=== PATIENT | male | born 1960 | race Caucasian/White ===

== ENCOUNTER 2017-07-02 00:59 | Inpatient (IN) | payer BC ==
[2017-07-02] VITALS (9 sets, daily range): BP systolic 118–135
[~2017-07-02] VITALS: Ht 167.6 cm; Wt 65.8 kg
[2017-07-02] MEDS ORDERED: NACL 0.9% 1,000 ML IV ONE ×2 (01:21→03:30)
[2017-07-02] MEDS ORDERED: LEVO500T20 PO (01:27)
[2017-07-02] MEDS ORDERED: TRAM50TA92 PO (01:27)
[2017-07-02] MEDS ORDERED: METR500T PO (01:28)
[2017-07-02] MEDS ORDERED: METOCLOPRAMIDE HCL 10 MG/2 ML VIAL IVP ONE (01:30)
[2017-07-02] MEDS ORDERED: KETOROLAC TROMETHAMINE 30 MG VIAL IVP ONE (01:30)
[2017-07-02 01:42] LABS: LYMPHOCYTES # (AUTO) 1.2 K/uL (1.0-5.5); MEAN CORPUSCULAR HEMOGLOBIN 33 pg (27-31); MEAN CORPUSCULAR HGB CONC 34 % (32-36); MEAN CORPUSCULAR VOLUME 96 fL (79.0-98.0); MONOCYTES # (AUTO) 1.1 K/uL (0.0-1.0)
[2017-07-02 01:49] LABS: BASOPHILS # (AUTO) 0.3 K/uL (0.0-0.2); BASOPHILS % (AUTO) 1.6 % (0.0-2.0); EOSINOPHILS % (AUTO) 0.1 % (0.0-4.0); HEMATOCRIT 36.9 % (36-54); HEMOGLOBIN 12.6 g/dL (14.0-18.0); LYMPHOCYTES % (AUTO) 7.3 % (20.5-51.5); MONOCYTES % (AUTO) 6.6 % (1.7-9.3); NEUTROPHILS # (AUTO) 13.8 K/uL (1.8-7.7); NEUTROPHILS % (AUTO) 84.4 % (40.0-70.0); PLATELET COUNT (AUTO) 339 K/uL (130-430); RED BLOOD CELL COUNT(AUTO) 3.83 MIL/uL (4.2-6.2); RED CELL DISTRIBUTION WIDTH 11.8 % (9.0-15.0)
[2017-07-02 01:50] LABS: CALCIUM 8.8 mg/dL (8.4-11.0); CREATININE 1.17 mg/dL (0.55-1.30)
[2017-07-02] MEDS ORDERED: IOHEXOL 100 ML IV ONE (01:53)
[2017-07-02 01:54] LABS: WHITE BLOOD COUNT (AUTO) 16.4 K/uL (4.8-10.8)
[2017-07-02] MEDS ORDERED: ONDANSETRON HCL 4 MG/2 ML VIAL IVP ONE (02:00)
[2017-07-02 02:01] LABS: ALBUMIN 2.5 g/dL (3.4-4.8); TOTAL BILIRUBIN 0.9 mg/dL (0.0-1.0)
[2017-07-02 02:05] LABS: POTASSIUM 2.9 mmol/L (3.5-5.1)
[2017-07-02 02:12] LABS: BILIRUBIN,URINE NEGATIVE (NEGATIVE); BLOOD, URINE 2+ (NEGATIVE); CLARITY/URINE SL CLOUDY (CLEAR); COLOR,URINE YELLOW (YELLOW); GLUCOSE,URINE NEGATIVE (NEGATIVE); KETONES,URINE 2+ (NEGATIVE); LEUKOCYTE ESTERASE ,URINE TRACE (NEGATIVE); NITRITE, URINE NEGATIVE (NEGATIVE); PH,URINE 5.5 (5.0-8.0); PROTEIN URINE 2+ (NEGATIVE); UROBILINOGEN,URINE 0.2 (0.2-1.0)
[2017-07-02 02:14] LABS: BACTERIA,URINE MANY /HPF (None Seen); FINE GRANULAR CASTS,URINE 0-10 /LPF (None Seen); MUCUS,URINE 1+ /LPF (None Seen)
[2017-07-02] MEDS ORDERED: LACTULOSE 20 GM/30 ML UDC PO ONE (02:15)
[2017-07-02] MEDS ORDERED: MORPHINE 4 MG/ML INJ. SYRINGE IVP ONE (02:15)
[2017-07-02] MEDS ORDERED: POTASSIUM CHLORIDE 20 MEQ/PKT PACKET PO ONE (02:15)
[2017-07-02] MEDS ORDERED: metroNIDAZOLE 500 mg/NS 100 ML IV ONE (03:30)
[2017-07-02] MEDS ORDERED: ACETAMINOPHEN 325 MG TABLET PO PRN (04:15)
[2017-07-02] MEDS ORDERED: HYDROmorphone 1 MG INJ. 1 MG/ML AMPUL IVP PRN (04:15)
[2017-07-02] MEDS ORDERED: HYDROcodone/ACETAMIN 5-325 MG TAB (NORCO/ VICODIN) PO PRN (04:15)
[2017-07-02] MEDS ORDERED: MILK OF MAGNESIA 30 ML UDC PO ONE ×2 (11:45→12:30)
[2017-07-02] MEDS: metroNIDAZOLE 500 mg/NS 100 ML IV SCH ×2 (13:51→21:58)
[2017-07-02] MEDS ORDERED: NEOMYCIN SULFATE 500 MG TABLET PO SCH (15:00)
[2017-07-02] MEDS: NEOMYCIN SULFATE 500 MG TABLET PO SCH ×2 (16:59→21:58)
[2017-07-02] MEDS ORDERED: MILK OF MAGNESIA 30 ML UDC PO PRN (20:30)
[2017-07-02] MEDS ORDERED: PANTOPRAZOLE SODIUM 40 MG TAB PO ONE (21:00)
[2017-07-02] MEDS: TEMAZEPAM 15 MG CAPSULE PO SCH (21:58)
[2017-07-03] VITALS (9 sets, daily range): BP systolic 120–139
[2017-07-03] MEDS ORDERED: NA PHOS,M-B/NA PHOS,DI-BA 118 ML (FLEET ENEMA) RC ONE (06:00)
[2017-07-03] MEDS: metroNIDAZOLE 500 mg/NS 100 ML IV SCH ×3 (06:38→19:15)
[2017-07-03 08:23] LABS: BASOPHILS % (AUTO) 0.1 % (0.0-2.0); EOSINOPHILS % (AUTO) 0.1 % (0.0-4.0); HEMATOCRIT 36.9 % (36-54); HEMOGLOBIN 12.6 g/dL (14.0-18.0); LYMPHOCYTES # (AUTO) 1.4 K/uL (1.0-5.5); LYMPHOCYTES % (AUTO) 14.3 % (20.5-51.5); MEAN CORPUSCULAR HEMOGLOBIN 33 pg (27-31); MEAN CORPUSCULAR HGB CONC 34 % (32-36); MONOCYTES # (AUTO) 0.6 K/uL (0.0-1.0); MONOCYTES % (AUTO) 5.8 % (1.7-9.3); NEUTROPHILS # (AUTO) 7.9 K/uL (1.8-7.7); NEUTROPHILS % (AUTO) 79.7 % (40.0-70.0); PLATELET COUNT (AUTO) 386 K/uL (130-430); RED BLOOD CELL COUNT(AUTO) 3.78 MIL/uL (4.2-6.2); RED CELL DISTRIBUTION WIDTH 12.1 % (9.0-15.0)
[2017-07-03 08:28] LABS: MEAN CORPUSCULAR VOLUME 98 fL (79.0-98.0); WHITE BLOOD COUNT (AUTO) 9.9 K/uL (4.8-10.8)
[2017-07-03 08:32] LABS: CALCIUM 8.7 mg/dL (8.4-11.0); POTASSIUM 3.1 mmol/L (3.5-5.1)
[2017-07-03 08:34] LABS: INR 1.3 (0.80-1.20); PROTHROMBIN TIME 13.7 SECS (9.5-12.5)
[2017-07-03 08:36] LABS: ALBUMIN 2.5 g/dL (3.4-4.8); TOTAL BILIRUBIN 0.4 mg/dL (0.0-1.0)
[2017-07-03] MEDS: PANTOPRAZOLE SODIUM 40 MG TAB PO SCH (09:00)
[2017-07-03] MEDS ORDERED: POTASSIUM CHLORIDE 40 MEQ, LIDOCAINE JECT 2% PF 100 MG 50 MG in NS 250 ML IV ONE (13:30)
[2017-07-03] MEDS ORDERED: LORazepam 2 MG/ML VIAL IVP ONE (14:15)
[2017-07-03] MEDS: NEOMYCIN SULFATE 500 MG TABLET PO SCH ×3 (15:00→22:00)
[2017-07-03] MEDS ORDERED: LR 1,000 ML IV.SOLN IV ONE (16:15)
[2017-07-03] MEDS ORDERED: KETOROLAC TROMETHAMINE 30 MG VIAL IVP ONE (16:15)
[2017-07-03] MEDS ORDERED: DEXAMETHASONE SOD PHOSPHATE 4 MG/ML VIAL IVP ONE (16:15)
[2017-07-03] MEDS ORDERED: NS 1000 ML BAG IV ONE (16:15)
[2017-07-03] MEDS ORDERED: NS IRRIG SOLN 1000 ML IR ONE (16:15)
[2017-07-03] MEDS ORDERED: ONDANSETRON HCL 4 MG/2 ML VIAL IVP ONE (16:15)
[2017-07-03] MEDS ORDERED: BUPIVACAINE /EPINEPHRINE/PF 0.25% 30 ML VIAL INJ ONE (16:15)
[2017-07-03] MEDS ORDERED: metroNIDAZOLE 500 mg/NS 100 mL IVPB IV ONE (16:15)
[2017-07-03] MEDS ORDERED: ROCURONIUM BROMIDE 10 MG/ML (ZEMURON) IV ONE (16:15)
[2017-07-03] MEDS ORDERED: fentaNYL CITRATE 250 MCG/5 ML AMP IV ONE (16:15)
[2017-07-03] MEDS ORDERED: MIDAZOLAM HCL 5 MG/5 ML VIAL IVP ONE (16:15)
[2017-07-03] MEDS ORDERED: PROPOFOL 200MG/ 20ML VIAL (DIPRIVAN) IV ONE (16:15)
[2017-07-03] MEDS ORDERED: SEVOFLURANE 15 MIN GAS INH ONE (16:15)
[2017-07-03] MEDS ORDERED: LR 1,000 ML IV SCH (17:16)
[2017-07-03] MEDS ORDERED: HYDROmorphone 2 MG/ML VIAL IVP PRN ×2 (17:30)
[2017-07-03] MEDS ORDERED: MEPERIDINE HCL/PF 25 MG/ML DISP.SYRIN IVP PRN (17:30)
[2017-07-03] MEDS ORDERED: HYDROmorphone 1 MG INJ. 1 MG/ML AMPUL IVP PRN (17:30)
[2017-07-03] MEDS ORDERED: HYDROmorphone 2 MG/ML VIAL ONE (19:44)
[2017-07-03] MEDS ORDERED: HYDROmorphone 1 MG INJ. 1 MG/ML AMPUL ONE (20:07)
[2017-07-03] MEDS: TEMAZEPAM 15 MG CAPSULE PO SCH (21:00)
[2017-07-03] MEDS: ONDANSETRON HCL 4 MG/2 ML VIAL IVP PRN (21:31)
[2017-07-03] MEDS: HYDROmorphone 1 MG INJ. 1 MG/ML AMPUL IVP PRN (21:31)
[2017-07-04] VITALS (18 sets, daily range): BP systolic 117–142
[2017-07-04] MEDS: HYDROmorphone 1 MG INJ. 1 MG/ML AMPUL IVP PRN ×6 (01:15→17:51)
[2017-07-04] MEDS: metroNIDAZOLE 500 mg/NS 100 ML IV SCH (03:29)
[2017-07-04 06:22] LABS: HEMOGLOBIN 11.2 g/dL (14.0-18.0); MEAN CORPUSCULAR HEMOGLOBIN 33 pg (27-31); MEAN CORPUSCULAR HGB CONC 34 % (32-36); MEAN CORPUSCULAR VOLUME 98 fL (79.0-98.0); PLATELET COUNT (AUTO) 394 K/uL (130-430); RED BLOOD CELL COUNT(AUTO) 3.37 MIL/uL (4.2-6.2); RED CELL DISTRIBUTION WIDTH 12.1 % (9.0-15.0)
[2017-07-04 06:31] LABS: ALBUMIN 2.3 g/dL (3.4-4.8); CALCIUM 8.7 mg/dL (8.4-11.0); POTASSIUM 3.8 mmol/L (3.5-5.1); TOTAL BILIRUBIN 0.4 mg/dL (0.0-1.0)
[2017-07-04 07:11] LABS: WHITE BLOOD COUNT (AUTO) 15.3 K/uL (4.8-10.8)
[2017-07-04 07:46] LABS: ATYPICAL LYMPHOCYTES % 0 % (0-0); BAND % (MANUAL) 2 % (0-6); BASOPHILS % (MANUAL) 0 % (0-2); EOSINOPHILS % (MANUAL) 0 % (0-7); LYMPHOCYTES % (MANUAL) 7 % (20-46); MONOCYTES % (MANUAL) 3 % (0-11)
[2017-07-04] MEDS: PANTOPRAZOLE SODIUM 40 MG TAB PO SCH ×2 (09:00→09:08)
[2017-07-04] MEDS: PANTOPRAZOLE SODIUM 40 MG/VIAL (PROTONIX) IVP SCH (11:31)
[2017-07-04] MEDS: D5LR 1,000 ML IV SCH ×3 (11:31→19:43)
[2017-07-04] MEDS: NEOMYCIN SULFATE 500 MG TABLET PO SCH ×2 (14:46→14:47)
[2017-07-04] MEDS ORDERED: HYDROmorphone 1 MG INJ. 1 MG/ML AMPUL IVP ONE (19:00)
[2017-07-04] MEDS: TEMAZEPAM 15 MG CAPSULE PO SCH (19:43)
[2017-07-04] MEDS: ONDANSETRON HCL 4 MG/2 ML VIAL IVP PRN (19:43)
[2017-07-04] MEDS: KETOROLAC TROMETHAMINE 30 MG VIAL IVP PRN (20:18)
[2017-07-05] MEDS: D5LR 1,000 ML IV SCH ×4 (01:40→18:46)
[2017-07-05] MEDS: HYDROmorphone 1 MG INJ. 1 MG/ML AMPUL IVP PRN ×4 (03:33→18:30)
[2017-07-05 03:54] VITALS: BP_SYST 127
[2017-07-05 07:09] LABS: BASOPHILS % (AUTO) 0.1 % (0.0-2.0); EOSINOPHILS % (AUTO) 0.4 % (0.0-4.0); HEMATOCRIT 30.4 % (36-54); HEMOGLOBIN 10.2 g/dL (14.0-18.0); LYMPHOCYTES # (AUTO) 2.1 K/uL (1.0-5.5); LYMPHOCYTES % (AUTO) 22.8 % (20.5-51.5); MEAN CORPUSCULAR HEMOGLOBIN 33 pg (27-31); MEAN CORPUSCULAR HGB CONC 34 % (32-36); MEAN CORPUSCULAR VOLUME 98 fL (79.0-98.0); MONOCYTES # (AUTO) 0.5 K/uL (0.0-1.0); MONOCYTES % (AUTO) 5.7 % (1.7-9.3); NEUTROPHILS # (AUTO) 6.6 K/uL (1.8-7.7); PLATELET COUNT (AUTO) 416 K/uL (130-430); RED BLOOD CELL COUNT(AUTO) 3.11 MIL/uL (4.2-6.2); RED CELL DISTRIBUTION WIDTH 12.2 % (9.0-15.0)
[2017-07-05 07:16] LABS: WHITE BLOOD COUNT (AUTO) 9.2 K/uL (4.8-10.8)
[2017-07-05 07:18] LABS: CALCIUM 8.3 mg/dL (8.4-11.0); CREATININE 0.92 mg/dL (0.55-1.30)
[2017-07-05 07:59] LABS: POTASSIUM 2.9 mmol/L (3.5-5.1)
[2017-07-05] MEDS ORDERED: POTASSIUM CHLORIDE 40 MEQ, LIDOCAINE JECT 2% PF 100 MG 50 MG in NS 250 ML IV ONE ×2 (08:15→17:45)
[2017-07-05 08:43] VITALS: BP_SYST 120
[2017-07-05] MEDS: PANTOPRAZOLE SODIUM 40 MG/VIAL (PROTONIX) IVP SCH (08:56)
[2017-07-05 12:25] VITALS: BP_SYST 116
[2017-07-05 13:50] VITALS: BP_SYST 116
[2017-07-05 16:23] VITALS: BP_SYST 142
[2017-07-05 20:55] VITALS: BP_SYST 124
[2017-07-05] MEDS: TEMAZEPAM 15 MG CAPSULE PO SCH (21:01)
[2017-07-05] MEDS: KETOROLAC TROMETHAMINE 30 MG VIAL IVP PRN (21:01)
[2017-07-05] MEDS: ONDANSETRON HCL 4 MG/2 ML VIAL IVP PRN (21:10)
[2017-07-06] VITALS (7 sets, daily range): BP systolic 127–150
[2017-07-06] MEDS: D5LR 1,000 ML IV SCH ×4 (01:20→22:03)
[2017-07-06] MEDS: KETOROLAC TROMETHAMINE 30 MG VIAL IVP PRN ×2 (05:40→14:43)
[2017-07-06 06:42] LABS: BASOPHILS % (AUTO) 0.2 % (0.0-2.0); EOSINOPHILS # (AUTO) 0.1 K/uL (0.0-0.4); EOSINOPHILS % (AUTO) 1.2 % (0.0-4.0); HEMOGLOBIN 11.2 g/dL (14.0-18.0); LYMPHOCYTES # (AUTO) 1.7 K/uL (1.0-5.5); LYMPHOCYTES % (AUTO) 22.6 % (20.5-51.5); MEAN CORPUSCULAR HEMOGLOBIN 33 pg (27-31); MEAN CORPUSCULAR HGB CONC 34 % (32-36); MEAN CORPUSCULAR VOLUME 97 fL (79.0-98.0); MONOCYTES # (AUTO) 0.6 K/uL (0.0-1.0); MONOCYTES % (AUTO) 7.4 % (1.7-9.3); NEUTROPHILS # (AUTO) 5.3 K/uL (1.8-7.7); NEUTROPHILS % (AUTO) 68.6 % (40.0-70.0); PLATELET COUNT (AUTO) 460 K/uL (130-430); WHITE BLOOD COUNT (AUTO) 7.7 K/uL (4.8-10.8)
[2017-07-06 06:47] LABS: CALCIUM 8.8 mg/dL (8.4-11.0); CREATININE 0.98 mg/dL (0.55-1.30); POTASSIUM 3.3 mmol/L (3.5-5.1)
[2017-07-06 07:13] LABS: TOTAL IRON BIND. CAPACITY 144 ug/dL (250-450)
[2017-07-06] MEDS: PANTOPRAZOLE SODIUM 40 MG/VIAL (PROTONIX) IVP SCH (08:48)
[2017-07-06] MEDS: HYDROmorphone 1 MG INJ. 1 MG/ML AMPUL IVP PRN ×2 (10:20→18:51)
[2017-07-06] MEDS ORDERED: POTASSIUM CHLORIDE 20 MEQ TAB.PRT.SR PO ONE (13:30)
[2017-07-06] MEDS: TEMAZEPAM 15 MG CAPSULE PO SCH (21:59)
[2017-07-07 04:19] VITALS: BP_SYST 144
[2017-07-07] MEDS: KETOROLAC TROMETHAMINE 30 MG VIAL IVP PRN ×2 (05:57→16:37)
[2017-07-07 06:47] LABS: BASOPHILS % (AUTO) 0.4 % (0.0-2.0); CALCIUM 8.9 mg/dL (8.4-11.0); CREATININE 1.03 mg/dL (0.55-1.30); EOSINOPHILS # (AUTO) 0.2 K/uL (0.0-0.4); EOSINOPHILS % (AUTO) 2.3 % (0.0-4.0); HEMATOCRIT 33.2 % (36-54); HEMOGLOBIN 11.5 g/dL (14.0-18.0); LYMPHOCYTES % (AUTO) 26.3 % (20.5-51.5); MEAN CORPUSCULAR HEMOGLOBIN 34 pg (27-31); MEAN CORPUSCULAR HGB CONC 35 % (32-36); MEAN CORPUSCULAR VOLUME 97 fL (79.0-98.0); MONOCYTES # (AUTO) 0.5 K/uL (0.0-1.0); MONOCYTES % (AUTO) 6.8 % (1.7-9.3); NEUTROPHILS # (AUTO) 4.8 K/uL (1.8-7.7); NEUTROPHILS % (AUTO) 64.2 % (40.0-70.0); PLATELET COUNT (AUTO) 513 K/uL (130-430); POTASSIUM 3.2 mmol/L (3.5-5.1); RED BLOOD CELL COUNT(AUTO) 3.41 MIL/uL (4.2-6.2); RED CELL DISTRIBUTION WIDTH 11.9 % (9.0-15.0); WHITE BLOOD COUNT (AUTO) 7.5 K/uL (4.8-10.8)
[2017-07-07] MEDS: PANTOPRAZOLE SODIUM 40 MG/VIAL (PROTONIX) IVP SCH (10:07)
[2017-07-07] MEDS: HYDROmorphone 1 MG INJ. 1 MG/ML AMPUL IVP PRN (10:09)
[2017-07-07 12:03] VITALS: BP_SYST 128
[2017-07-07] MEDS ORDERED: POTASSIUM CHLORIDE 20 MEQ TAB.PRT.SR PO ONE (14:00)
[2017-07-07] MEDS: ONDANSETRON HCL 4 MG/2 ML VIAL IVP PRN (16:41)
[2017-07-07 16:57] VITALS: BP_SYST 125
[2017-07-07 20:00] VITALS: BP_SYST 144
[2017-07-07] MEDS: TEMAZEPAM 15 MG CAPSULE PO SCH (21:51)
[2017-07-07] MEDS: POTASSIUM CHLORIDE 20 MEQ TAB.PRT.SR PO SCH (21:51)
[2017-07-07] MEDS: D5LR 1,000 ML IV SCH (21:55)
[2017-07-08] VITALS (7 sets, daily range): BP systolic 114–143
[2017-07-08] MEDS: KETOROLAC TROMETHAMINE 30 MG VIAL IVP PRN (07:35)
[2017-07-08] MEDS: POTASSIUM CHLORIDE 20 MEQ TAB.PRT.SR PO SCH ×2 (08:35→20:57)
[2017-07-08] MEDS: PANTOPRAZOLE SODIUM 40 MG/VIAL (PROTONIX) IVP SCH (08:35)
[2017-07-08] MEDS: HYDROcodone/ACETAMIN 5-325 MG TAB (NORCO/ VICODIN) PO PRN ×4 (08:36→20:58)
[2017-07-09 04:01] VITALS: BP_SYST 137
[2017-07-09 07:55] VITALS: BP_SYST 133
[2017-07-09] MEDS: PANTOPRAZOLE SODIUM 40 MG/VIAL (PROTONIX) IVP SCH (08:44)
[2017-07-09] MEDS: POTASSIUM CHLORIDE 20 MEQ TAB.PRT.SR PO SCH (08:45)
[2017-07-09] MEDS: HYDROcodone/ACETAMIN 5-325 MG TAB (NORCO/ VICODIN) PO PRN ×3 (08:45→17:39)
[2017-07-09 11:42] VITALS: BP_SYST 136
[2017-07-09 12:40] VITALS: BP_SYST 121
[2017-07-09] MEDS: KETOROLAC TROMETHAMINE 30 MG VIAL IVP PRN (14:39)
[2017-07-09 16:24] VITALS: BP_SYST 136
== END 2017-07-09 18:10 | disposition home or self-care (01) | DRG 854 ==
LOC: SED 00:59 → SMU 04:09 → SIC 07-03 20:34 → STU 07-04 15:31 → SMU 07-05 19:14
PROVIDERS: ADMIT Internal Medicine; ATTEND Internal Medicine
PROC: 0DBN4ZZ Excision of Sigmoid Colon, Percutaneous Endoscopic Approach (ICD-10-PCS; principal; 2017-07-03 16:45)
DX: A41.9 Sepsis, unspecified organism (principal); E44.0 Moderate protein-calorie malnutrition; K57.20 Diverticulitis of large intestine with perforation and abscess without bleeding; E87.6 Hypokalemia; Z68.23 Body mass index [BMI] 23.0-23.9, adult; J44.9 Chronic obstructive pulmonary disease, unspecified; D64.9 Anemia, unspecified
CPT/HCPCS: 36415; 71010; 80048; 80053; 81000-TC; 83540-TC; 83550-TC; 83605; 83690-TC; 83735-TC; 85007; 85025; 85027; 85610-TC; 86886; 86900; 86901; 87081; 87086; 88307; 93005; 94010; 96361; 96365; 96375; 99285; C9113; J1100; J1170; J1885; J1956; J2060; J2250; J2270; J2405; J2704; J2765; J3010; J3480; J3490; J7030; J7050; J7120; Q9967

== ENCOUNTER 2017-07-10 14:02 | Emergency (ER) | payer BC ==
[~2017-07-10] VITALS: Ht 170.2 cm; Wt 65.8 kg
[2017-07-10 14:22] VITALS: BP_SYST 134
[2017-07-10] MEDS ORDERED: HYDROcodone/ACETAMIN 7.5-325 MG TAB PO ONE (15:30)
[2017-07-10] MEDS ORDERED: DEXAMETHASONE SOD PHOSPHATE 10 MG/ML VIAL IM ONE (15:30)
[2017-07-10 16:01] VITALS: BP_SYST 132
[2017-07-10 16:27] LABS: BILIRUBIN,URINE NEGATIVE (NEGATIVE); BLOOD, URINE NEGATIVE (NEGATIVE); CLARITY/URINE CLEAR (CLEAR); COLOR,URINE YELLOW (YELLOW); GLUCOSE,URINE NEGATIVE (NEGATIVE); KETONES,URINE NEGATIVE (NEGATIVE); LEUKOCYTE ESTERASE ,URINE NEGATIVE (NEGATIVE); NITRITE, URINE NEGATIVE (NEGATIVE); PROTEIN URINE NEGATIVE (NEGATIVE); UROBILINOGEN,URINE 0.2 (0.2-1.0)
== END 2017-07-10 16:01 | disposition home or self-care (01) ==
LOC: SED 14:02
DX: R07.89 Other chest pain (principal); M54.10 Radiculopathy, site unspecified; R03.0 Elevated blood-pressure reading, without diagnosis of hypertension
CPT/HCPCS: 71010; 81003; 93005; 96372; 99285; J1100

== ENCOUNTER 2017-07-14 14:40 | Emergency (ER) | payer BC ==
[~2017-07-14] VITALS: Ht 165.1 cm; Wt 62.1 kg
[2017-07-14 14:51] VITALS: BP_SYST 115
[2017-07-14 16:19] VITALS: BP_SYST 115
== END 2017-07-14 16:19 | disposition home or self-care (01) ==
LOC: SED 14:40
DX: Z48.01 Encounter for change or removal of surgical wound dressing (principal); Z98.890 Other specified postprocedural states
CPT/HCPCS: 99281

== ENCOUNTER 2017-07-20 10:57 | Emergency (ER) | payer BC ==
[~2017-07-20] VITALS: Ht 165.1 cm; Wt 62.6 kg
[2017-07-20 11:01] VITALS: BP_SYST 156
--- NOTE | 2017-07-20 11:09 | NUR ---
Pt to bed 1
--- NOTE | 2017-07-20 11:10 | NUR ---
ER at bedside examining patient.
--- NOTE | 2017-07-20 11:14 | NUR ---
Pt presents to ED with surgical incision to abdomen, s/p resection on Jul 03, by Dr Brennan. Pt reports new drainage, after showering. Some serous drainage noted. Pt 01/16 and tolerable. NAD, Pt is A&O x4
[2017-07-20 12:15] LABS: BASOPHILS % (AUTO) 0.6 % (0.0-2.0); EOSINOPHILS # (AUTO) 0.1 K/uL (0.0-0.4); HEMATOCRIT 41.2 % (36-54); HEMOGLOBIN 13.8 g/dL (14.0-18.0); LYMPHOCYTES # (AUTO) 1.5 K/uL (1.0-5.5); LYMPHOCYTES % (AUTO) 21.2 % (20.5-51.5); MEAN CORPUSCULAR HEMOGLOBIN 32 pg (27-31); MEAN CORPUSCULAR HGB CONC 33 % (32-36); MEAN CORPUSCULAR VOLUME 96 fL (79.0-98.0); MONOCYTES # (AUTO) 0.4 K/uL (0.0-1.0); MONOCYTES % (AUTO) 5.2 % (1.7-9.3); NEUTROPHILS # (AUTO) 5.3 K/uL (1.8-7.7); PLATELET COUNT (AUTO) 420 K/uL (130-430); RED CELL DISTRIBUTION WIDTH 12.3 % (9.0-15.0); WHITE BLOOD COUNT (AUTO) 7.3 K/uL (4.8-10.8)
[2017-07-20 12:38] LABS: CALCIUM 9.2 mg/dL (8.4-11.0); CREATININE 1.09 mg/dL (0.55-1.30); POTASSIUM 3.5 mmol/L (3.5-5.1)
[2017-07-20 12:45] VITALS: BP_SYST 140
[2017-07-20 12:45] LABS: ALBUMIN 3.7 g/dL (3.4-4.8); TOTAL BILIRUBIN 0.5 mg/dL (0.0-1.0)
--- NOTE | 2017-07-20 12:45 | NUR ---
Patient given written and verbal discharge instructions and verbalizes understanding. ER MD discussed with patient the results and treatment provided. Patient in stable condition. ID arm band removed. No Rx given. Patient educated on pain management and to follow up with PMD. Pain Scale 0/10. Opportunity for questions provided and answered.
== END 2017-07-20 12:45 | disposition home or self-care (01) ==
LOC: SED 10:57
DX: Z48.01 Encounter for change or removal of surgical wound dressing (principal); Z91.011 Allergy to milk products
CPT/HCPCS: 36415; 80053; 83690-TC; 85025; 99284

== ENCOUNTER 2017-10-05 13:35 | Emergency (ER) | payer BC ==
[~2017-10-05] VITALS: Ht 165.1 cm; Wt 65.8 kg
[2017-10-05 14:23] VITALS: BP_SYST 138
[2017-10-05] MEDS ORDERED: CLINDAMYCIN 600 MG in D5W 50 ML IV ONE (19:15)
[2017-10-05] MEDS ORDERED: NACL 0.9% 1,000 ML IV ONE (19:15)
[2017-10-05] MEDS ORDERED: CLINDAMYCIN 600 mg/50mL D5W 50 ML IV ONE (19:24)
[2017-10-05] MEDS ORDERED: KETOROLAC TROMETHAMINE 30 MG VIAL IVP ONE (19:45)
[2017-10-05] MEDS ORDERED: LIDOCAINE 1%, 20 ML MDV 20 ML ONE (21:22)
[2017-10-05 22:47] VITALS: BP_SYST 124
== END 2017-10-05 22:47 | disposition home or self-care (01) ==
LOC: SED 13:35
DX: L02.411 Cutaneous abscess of right axilla (principal); Z91.011 Allergy to milk products
CPT/HCPCS: 10060; 76882; 96365; 96375; 99284; J1885; J2001; J3490; J7030

== ENCOUNTER 2017-10-09 17:34 | Inpatient (IN) | payer BC ==
[~2017-10-09] VITALS: Ht 165.1 cm; Wt 65.8 kg
[2017-10-09 18:14] VITALS: BP_SYST 123
--- NOTE | 2017-10-09 21:03 | NUR ---
Patient to ER bed 7 to gown for evaluation. Side rails up. Report given to JODY BURKS.
--- NOTE | 2017-10-09 21:15 | NUR ---
57year old male accompanied by family; pt was seen today and instructed by [facility] to come to ER for reassess and follow up I/D of abcess to R arm pit; pt reports 8/10 pain; pt is currently taking Ibuprofen at home for pain managment which has been ineffective; currently on course antibiotics Clindamycin; pt states redness and inflammation extends throughout upper Right arm; denies fever/chills/sweat; awaiting for MD to assess/eval
--- NOTE | 2017-10-09 21:30 | NUR ---
Dr. Beltran at bedside for assess/eval
[2017-10-09] MEDS ORDERED: IBUP-1969 PO (21:44)
[2017-10-09] MEDS ORDERED: CLIN-77 PO (21:44)
[2017-10-09] MEDS ORDERED: AMPICILLIN SODIUM/SULBACTAM NA 3 GM in NS 100 ML IV ONE (21:45)
[2017-10-09] MEDS ORDERED: AMPICILLIN SODIUM/SULBACTAM NA 3 GM VIAL ONE (21:51)
[2017-10-09] MEDS ORDERED: MORPHINE 4 MG/ML INJ. SYRINGE IVP ONE (22:15)
[2017-10-09] MEDS ORDERED: MORPHINE SULFATE 10 MG/ML VIAL ONE (22:18)
--- NOTE | 2017-10-09 22:20 | NUR ---
20g LH PIV placed; pain med given for 8/10 pain to R arm region; started Unasyn IV ABx; pt tony; will continue to monitor; urine sample collected and will send out to lab
--- NOTE | 2017-10-09 22:30 | NUR ---
wound culture obtained and sent to lab
--- NOTE | 2017-10-09 22:37 | NUR ---
labs drawn at bedside; pt tony
[2017-10-09] MEDS ORDERED: ACETAMINOPHEN 325 MG TABLET PO PRN (23:00)
[2017-10-09] MEDS ORDERED: ONDANSETRON HCL 4 MG/2 ML VIAL IVP PRN ×2 (23:00→23:15)
[2017-10-09] MEDS ORDERED: MORPHINE 2 MG/ML INJ. SYRINGE IVP PRN (23:00)
[2017-10-09 23:08] LABS: BASOPHILS # (AUTO) 0.1 K/uL (0.0-0.2); BASOPHILS % (AUTO) 1.5 % (0.0-2.0); EOSINOPHILS # (AUTO) 0.2 K/uL (0.0-0.4); HEMATOCRIT 35.7 % (36-54); HEMOGLOBIN 11.9 g/dL (14.0-18.0); LYMPHOCYTES # (AUTO) 2.7 K/uL (1.0-5.5); LYMPHOCYTES % (AUTO) 28.6 % (20.5-51.5); MEAN CORPUSCULAR HEMOGLOBIN 31 pg (27-31); MEAN CORPUSCULAR HGB CONC 33 % (32-36); MEAN CORPUSCULAR VOLUME 92 fL (79.0-98.0); MONOCYTES # (AUTO) 0.5 K/uL (0.0-1.0); MONOCYTES % (AUTO) 5.6 % (1.7-9.3); NEUTROPHILS # (AUTO) 5.8 K/uL (1.8-7.7); NEUTROPHILS % (AUTO) 62.3 % (40.0-70.0); PLATELET COUNT (AUTO) 366 K/uL (130-430); RED BLOOD CELL COUNT(AUTO) 3.88 MIL/uL (4.2-6.2); RED CELL DISTRIBUTION WIDTH 12.8 % (9.0-15.0); WHITE BLOOD COUNT (AUTO) 9.3 K/uL (4.8-10.8)
[2017-10-09 23:09] LABS: BILIRUBIN,URINE NEGATIVE (NEGATIVE); BLOOD, URINE NEGATIVE (NEGATIVE); CLARITY/URINE CLEAR (CLEAR); COLOR,URINE YELLOW (YELLOW); GLUCOSE,URINE NEGATIVE (NEGATIVE); KETONES,URINE NEGATIVE (NEGATIVE); LEUKOCYTE ESTERASE ,URINE NEGATIVE (NEGATIVE); NITRITE, URINE NEGATIVE (NEGATIVE); PH,URINE 5.5 (5.0-8.0); PROTEIN URINE NEGATIVE (NEGATIVE); UROBILINOGEN,URINE 0.2 (0.2-1.0)
[2017-10-09 23:11] LABS: ALBUMIN 3.1 g/dL (3.4-4.8); CALCIUM 8.8 mg/dL (8.4-11.0); CREATININE 1.14 mg/dL (0.55-1.30); POTASSIUM 4.1 mmol/L (3.5-5.1); TOTAL BILIRUBIN 0.2 mg/dL (0.0-1.0)
--- NOTE | 2017-10-09 23:17 | NUR ---
endorsed care to JODY Giordano; pt resting comfortably bed; family at bedside; reports pain improved 5/10; VSS
--- NOTE | 2017-10-10 00:17 | NUR ---
Patient resting quietly. No acute distress noted. Vital signs within normal range.
--- NOTE | 2017-10-10 00:32 | NUR ---
Patient will be admitted to care of Dr. Mora. Admitted to Medical Surgical unit. Will go to room 109 C Belongings list completed. Summary report printed. Report will be given at bedside.
--- NOTE | 2017-10-10 00:48 | NUR ---
ADMISSION NOTE Received patient from ER via cal, received report from BONNIE VERA. Patient admitted with diagnosis of AXILLARY CELLULITIS. Patient oriented to hospital routine, call light, toileting and safety-patient verbalized understanding.
[2017-10-10 01:00] VITALS: BP_SYST 125
--- NOTE | 2017-10-10 02:52 | NUR ---
ID Consultation Paged Reason for consultation; Cellulitis Was consult called: Yes Person who was notified: Caroline Consulting Physician: Dr Reddy Professional Services Specialist Specialty: Infectious Disease Professional Services Specialist Ordered By: Dr Mora
--- NOTE | 2017-10-10 05:22 | NUR ---
WOUND LATE ENTRY DUE TO PATIENT CARE. WOUND CLEANSED WITH NORMAL SALINE, FOAM DRESSING AND WRAPPED WITH KERLIX GAUZE. PHOTO WAS TAKEN AND WILL BE PLACED IN PATIENT'S CHART.
--- NOTE | 2017-10-10 07:37 | NUR ---
CLOSING NOTES PATIENT IS STABLE WITH NO S/S OF ACUTE DISTRESS. ALL NEEDS MET THROUGHOUT SHIFT. WILL ENDORSE CARE TO ONCOMING DAY SHIFT NURSE.
--- NOTE | 2017-10-10 07:49 | NUR ---
OPENING NOTE PATIENT RESTING COMFORTABLY, RECEIVED REPORT FROM SCALER NURSE DEE. PATIENT HAS NO COMPLAINTS OF PAIN AT THIS TIME. PATIENT GIVEN WATER AT BEDSIDE, SITTING UPRIGHT FOR MEAL. PATIENT HAS NO NOTABLE SIGNS OF DISTRESS AT THIS TIME. PATIENTS BED IN LOWEST POSITION, CALL LIGHT WITHIN REACH, AND SIDE RAILS ARE UP FOR SAFETY MEASURES. WILL CONTINUE TO MONITOR PATIENT FOR CHANGES IN STATUS.
[2017-10-10 08:40] LABS: BASOPHILS % (AUTO) 0.3 % (0.0-2.0); EOSINOPHILS # (AUTO) 0.2 K/uL (0.0-0.4); HEMATOCRIT 39.9 % (36-54); HEMOGLOBIN 13.4 g/dL (14.0-18.0); LYMPHOCYTES # (AUTO) 1.8 K/uL (1.0-5.5); LYMPHOCYTES % (AUTO) 23.3 % (20.5-51.5); MEAN CORPUSCULAR HEMOGLOBIN 31 pg (27-31); MEAN CORPUSCULAR HGB CONC 34 % (32-36); MEAN CORPUSCULAR VOLUME 92 fL (79.0-98.0); MONOCYTES # (AUTO) 0.4 K/uL (0.0-1.0); MONOCYTES % (AUTO) 5.4 % (1.7-9.3); NEUTROPHILS # (AUTO) 5.4 K/uL (1.8-7.7); PLATELET COUNT (AUTO) 401 K/uL (130-430); RED BLOOD CELL COUNT(AUTO) 4.32 MIL/uL (4.2-6.2); RED CELL DISTRIBUTION WIDTH 12.8 % (9.0-15.0); WHITE BLOOD COUNT (AUTO) 7.8 K/uL (4.8-10.8)
[2017-10-10] MEDS: MORPHINE 2 MG/ML INJ. SYRINGE IVP PRN (08:53)
[2017-10-10 08:54] LABS: ALBUMIN 3.1 g/dL (3.4-4.8); CALCIUM 9.1 mg/dL (8.4-11.0); CREATININE 1.13 mg/dL (0.55-1.30); TOTAL BILIRUBIN 0.2 mg/dL (0.0-1.0)
[2017-10-10] MEDS: FAMOTIDINE 20 MG TABLET PO SCH (08:54)
[2017-10-10 09:05] VITALS: BP_SYST 118
--- NOTE | 2017-10-10 10:18 | NUR ---
NOTE PATIENT RESTING COMFORTABLY, NO NEEDS AT THIS TIME. PATIENT ENCOURAGED TO CALL SHOULD NEEDS ARISE. WILL CONTINUE TO MONITOR AND FOLLOW UP WITH PATIENT.
[2017-10-10 12:15] VITALS: BP_SYST 135
--- NOTE | 2017-10-10 12:22 | NUR ---
NOTE PATIENT RESTING COMFORTABLY, PATIENT HAS NO NEEDS AT THIS TIME. PATIENTS SIGNIFICANT OTHER AT BEDSIDE. PATIENT HAS NO NOTABLE SIGNS OF DISTRESS. PATIENTS BED IN LOWEST POSITION, CALL LIGHT WITHIN REACH, AND SIDE RAILS ARE UP FOR SAFETY MEASURES. WILL CONTINUE TO MONITOR AND FOLLOW UP WITH PATIENT. PATIENT TO RECEIVED CLINDAMYCIN AND VANCOMYCIN VIA IVPB ORDERED BY DR. VAZQUEZ.
[2017-10-10] MEDS: CLINDAMYCIN 600 MG in D5W 50 ML IV SCH ×3 (12:50→23:43)
--- NOTE | 2017-10-10 14:10 | NUR ---
NOTE PATIENT RESTING COMFORTABLY, NO NEEDS AT THIS TIME. SIGNIFICANT OTHER AT BEDSIDE. PATIENT ENCOURAGED TO CALL SHOULD NEEDS ARISE. WILL CONTINUE TO MONITOR AND FOLLOW UP WITH PATIENT.
--- NOTE | 2017-10-10 15:28 | NUR ---
CONSULT SURGERY STEPHANIE PRASAD FOR I AND D DR KONG [phone] S/W JOSEPHINE FRANCIS @ [phone]
[2017-10-10] MEDS: VANCOMYCIN HCL 1,500 MG in NS 250 ML IV SCH (15:41)
[2017-10-10] MEDS: HYDROcodone/ACETAMIN 5-325 MG TAB (NORCO/ VICODIN) PO PRN (15:57)
--- NOTE | 2017-10-10 16:18 | NUR ---
NOTE PATIENT RESTING COMFORTABLY, NO NEEDS AT THIS TIME. PATIENT ENCOURAGED TO CALL SHOULD NEEDS ARISE. WILL CONTINUE TO MONITOR AND FOLLOW UP WITH PATIENT. PATIENT WAS SEEN BY GEORGE CORONEL, AND ATERICA DURING SHIFT. PATIENT TO GO TO SURGERY TOMORROW 10/11/16. PATIENT AWARE THERE IS NPO AFTER MIDNIGHT ORDER.
[2017-10-10 16:40] VITALS: BP_SYST 124
--- NOTE | 2017-10-10 18:40 | NUR ---
CLOSING NOTE PATIENT RESTING COMFORTABLY. NO NEEDS AT THIS TIME. AWAITING TO GIVE REPORT TO TYPESETTER APPRENTICE NURSE. PATIENT HAS NO NOTABLE SIGNS OF DISTRESS AT THIS TIME. DISCUSSED AGAIN NPO AFTER MIDNIGHT, ENCOURAGED TO CALL FOR SNACK AROUND [phone] PRIOR TO NPO STATUS. PATIENTS SIGNIFICANT OTHER AND PATIENT VERBALIZED UNDERSTANDING. PATIENT STATES HE DID NOT SLEEP WELL LAST NIGHT. PATIENT ENCOURAGED TO CALL AND ASK FOR SLEEPING MEDICATION ORDERED. WILL ENDORSE TO TYPESETTER APPRENTICE NURSE AT BEDSIDE.
--- NOTE | 2017-10-10 19:45 | NUR ---
STARTING NOTE PRACTICING MD ANESTHESIOLOGIST Patient in bed resting. Family is at the bed side. Patient states he has "some pain" 3/10 on his right armpit abscess site, but he did not request pain medication. He seems to be somewhat worried and anxious. The nurse re-assured him and answered some questions about the upcoming procedure. Patient is on room air, oxygen saturation is 100% at this time. IV line does not flush and it hurts per patient, the nurse will insert a new IV line. Patient will be NPO after midnight for surgery I&D of the R armpit abscess. The nurse will change the abscess site dressing. Fall precautions in place.
[2017-10-10 20:00] VITALS: BP_SYST 120
--- NOTE | 2017-10-10 20:30 | NUR ---
NEW IV LINE INSERTED, ABSCESS DRESSING CHANGED The nurse inserted new IV line on the right hand/dorsal #20. The nurse also changed the dressing on the abscess site with clean dressing and wrapped it with curlex. No pain or distress noted.
--- NOTE | 2017-10-10 23:30 | NUR ---
CESARIEN REQUESTED The nurse administered Ambien per patient's request. No distress or pain noted.
[2017-10-10] MEDS: ZOLPIDEM TARTRATE 5 MG TABLET PO PRN (23:43)
[2017-10-11] VITALS: BP_SYST 125
--- NOTE | 2017-10-11 02:30 | NUR ---
ROUNDS Patient in bed sleeping. No S/S of pain or distress noted. Will continue to monitor for safety and pain.
--- NOTE | 2017-10-11 05:07 | NUR ---
ROUNDS Patient in bed sleeping. No distress noted. Patient is currently NPO for surgery. RT notified about EKG order. Spoke with Jarlon.
[2017-10-11] MEDS: CLINDAMYCIN 600 MG in D5W 50 ML IV SCH ×4 (05:42→23:07)
[2017-10-11 07:31] LABS: BASOPHILS % (AUTO) 0.4 % (0.0-2.0); EOSINOPHILS # (AUTO) 0.2 K/uL (0.0-0.4); EOSINOPHILS % (AUTO) 2.6 % (0.0-4.0); HEMATOCRIT 43.8 % (36-54); HEMOGLOBIN 14.3 g/dL (14.0-18.0); LYMPHOCYTES # (AUTO) 1.8 K/uL (1.0-5.5); LYMPHOCYTES % (AUTO) 29.3 % (20.5-51.5); MEAN CORPUSCULAR HEMOGLOBIN 30 pg (27-31); MEAN CORPUSCULAR HGB CONC 33 % (32-36); MEAN CORPUSCULAR VOLUME 93 fL (79.0-98.0); MONOCYTES # (AUTO) 0.3 K/uL (0.0-1.0); MONOCYTES % (AUTO) 4.2 % (1.7-9.3); NEUTROPHILS % (AUTO) 63.5 % (40.0-70.0); PLATELET COUNT (AUTO) 474 K/uL (130-430); RED BLOOD CELL COUNT(AUTO) 4.74 MIL/uL (4.2-6.2); RED CELL DISTRIBUTION WIDTH 12.7 % (9.0-15.0); WHITE BLOOD COUNT (AUTO) 6.3 K/uL (4.8-10.8)
[2017-10-11 07:48] LABS: PROTHROMBIN TIME 10.4 SECS (9.5-12.5)
[2017-10-11 07:52] LABS: CALCIUM 9.1 mg/dL (8.4-11.0); CREATININE 1.15 mg/dL (0.55-1.30); POTASSIUM 4.1 mmol/L (3.5-5.1)
--- NOTE | 2017-10-11 08:08 | NUR ---
CLOSING NOTE Patient in bed resting and napping. No pain or any distress noted. EKG, Chest X-ray and blood work was done to prepare him for I&D surgery today. The time of the surgery is not known yet, the nurse asked Samia/charge nurse, but she also has not received that information. Consent for the surgery and the blood (per policy) was obtained. All paperwork is in the chart. CHG will be done within 1 hour before the surgery per hospital policy, this was conveyed to the day shift nurse. IVF running smoothly. Patient's needs met throughout the shift.
--- NOTE | 2017-10-11 08:20 | NUR ---
OPENING NOTE PATIENT RESTING COMFORTABLY, RECEIVED REPORT FROM WINTERIZER NURSE, FAMILY AT BEDSIDE. PATIENT HAS NO COMPLAINTS OF PAIN AT THIS TIME. PATIENT HAS NO NOTABLE SIGNS OF DISTRESS AT THIS TIME. PATIENTS BED IN LOWEST POSITION, CALL LIGHT WITHIN REACH, AND SIDE RAILS ARE UP FOR SAFETY MEASURES. WILL CONTINUE TO MONITOR PATIENT FOR CHANGES IN STATUS. PATIENT TO HAVE SURGERY TODAY, PATIENT NPO AFTER MIDNIGHT.
[2017-10-11 08:29] LABS: ALBUMIN 3.4 g/dL (3.4-4.8); TOTAL BILIRUBIN 0.3 mg/dL (0.0-1.0)
[2017-10-11] MEDS: FAMOTIDINE 20 MG TABLET PO SCH (08:48)
[2017-10-11 08:50] VITALS: BP_SYST 128
--- NOTE | 2017-10-11 10:18 | NUR ---
NOTE PATIENT RESTING COMFORTABLY. NO COMPLAINTS OF PAIN. PATIENT AWAITING SURGERY. WILL CALL SURGERY FOR SCHEDULED TIME. PATIENTS FAMILY AT BEDSIDE. WILL CONTINUE TO MONITOR PATIENT FOR CHANGES IN STATUS.
[2017-10-11 12:30] VITALS: BP_SYST 126
--- NOTE | 2017-10-11 12:40 | NUR ---
SURGERY PREP PATIENT GIVEN CHG BATH WITH ASSISTANCE OF ANDRES. PATIENTS LINENS CHANGED. CLEAN SOCKS GIVEN TO PATIENT. PATIENTS IV ANTIBIOTICS TO BE COMPLETED PRIOR TO TRANSFER. PATIENT SURGERY SCHEDULED FOR 1400. AWAITING TRANSPORT.
--- NOTE | 2017-10-11 13:20 | NUR ---
SURGERY PATIENT TRANSPORTED VIA BED BY ANNIE SHELL. AWAITING RETURN OF PATIENT FROM PACU. PATIENT SCHEDULED FOR I&D OF AXILLA WOUND.
[2017-10-11] MEDS ORDERED: LR 1,000 ML IV SCH (13:43)
[2017-10-11] MEDS ORDERED: HYDROmorphone 2 MG/ML VIAL IVP PRN ×2 (13:45)
[2017-10-11] MEDS ORDERED: MEPERIDINE HCL/PF 25 MG/ML DISP.SYRIN IVP PRN ×2 (13:45)
[2017-10-11] MEDS ORDERED: ONDANSETRON HCL 4 MG/2 ML VIAL IVP PRN (13:45)
[2017-10-11] MEDS ORDERED: HYDROmorphone 1 MG INJ. 1 MG/ML AMPUL IVP PRN (13:45)
[2017-10-11] MEDS ORDERED: HYDROmorphone 1 MG INJ. 1 MG/ML AMPUL ONE (14:12)
--- NOTE | 2017-10-11 14:35 | NUR ---
NOTE PATIENT RETURNED FROM SURGERY. VITAL SIGNS STABLE. DRESSING CLEAN DRY AND INTACT. REPORT GIVEN AT BEDSIDE BY GIORGIO. WILL CONTINUE TO MONITOR AND FOLLOW UP WITH PATIENT. PATIENT TO RECEIVE IV VANCO PER MD ORDERS.
[2017-10-11] MEDS: VANCOMYCIN HCL 1,500 MG in NS 250 ML IV SCH (14:41)
[2017-10-11 16:05] VITALS: BP_SYST 110
--- NOTE | 2017-10-11 16:18 | NUR ---
ROUNDS PATIENT RESTING COMFORTABLY. NO NEEDS AT THIS TIME. FAMILY AT BEDSIDE FOR COMFORT AND SAFETY. WILL CONTINUE TO MONITOR AND FOLLOW UP WITH PATIENT.
[2017-10-11] MEDS: MORPHINE 2 MG/ML INJ. SYRINGE IVP PRN ×2 (18:07→22:17)
--- NOTE | 2017-10-11 18:40 | NUR ---
LAB LABOR[facility] CALLED. PATIENTS WOUND CULTURE CAME BACK POSITIVE FOR PRESUMPTIVE MRSA. WILL NOTIFY AGUSTÍN WISE.
--- NOTE | 2017-10-11 18:56 | NUR ---
NOTE DR. RIVERS CALLED REGARDING POSITIVE WOUND CULTURE. NO CHANGES IN ORDERS. INFORMED CHARGE NURSE, PATIENT TO BE MOVED TO ISOLATION ROOM. PATIENT AWARE OF INFECTION. ENCOURAGED HAND WASHING AND MINIMIZE TOUCHING OF WOUND AND DRESSING.
[2017-10-11 20:00] VITALS: BP_SYST 130
--- NOTE | 2017-10-11 20:00 | NUR ---
Initial PM Note Pt was received lying in bed fully awake and alert. No c/o pain or discomfort and no acute distress noted. Speech is clear and pt is able to make his needs known. Saline lock in Rt hand is without any signs of infiltration. Rt axillary dressing is dry and intact. Call light is with pt. Will continue to monitor pt.
[2017-10-11 21:19] VITALS: BP_SYST 110
--- NOTE | 2017-10-11 22:17 | NUR ---
Pain Medication Morphine 2mg was given IV for c/o right axillary incisional pain with relief. The dressing remains dry and intact. Pt was instructed Morphine may cause dizziness or drowsiness and for pt to call for assistance before getting out of bed if dizzy or drowsy. Pt verbalized understanding.
[2017-10-11] MEDS: ZOLPIDEM TARTRATE 5 MG TABLET PO PRN (23:45)
--- NOTE | 2017-10-11 23:45 | NUR ---
Insomnia Ambien 10mg was given po per pt's request for c/o insomnia. Rt axillary dressing is dry and intact. Fall and safety precautions are in place.
[2017-10-12 00:40] VITALS: BP_SYST 114
--- NOTE | 2017-10-12 02:00 | NUR ---
Rounds Pt is sleeping without any distress noted. Call light is with pt.
--- NOTE | 2017-10-12 04:00 | NUR ---
Rounds Pt is sleeping comfortably in bed. No respiratory distress noted. Fall and safety precautions are in place.
[2017-10-12] MEDS: CLINDAMYCIN 600 MG in D5W 50 ML IV SCH ×3 (05:29→18:10)
--- NOTE | 2017-10-12 06:30 | NUR ---
Closing Note Pt is awake and resting comfortably in bed. All pt's needs were attended to. Will endorse to day shift nurse.
[2017-10-12 06:56] LABS: BASOPHILS % (AUTO) 0.1 % (0.0-2.0); HEMATOCRIT 38.6 % (36-54); HEMOGLOBIN 13.2 g/dL (14.0-18.0); LYMPHOCYTES # (AUTO) 1.7 K/uL (1.0-5.5); LYMPHOCYTES % (AUTO) 14.8 % (20.5-51.5); MEAN CORPUSCULAR HEMOGLOBIN 31 pg (27-31); MEAN CORPUSCULAR HGB CONC 34 % (32-36); MEAN CORPUSCULAR VOLUME 92 fL (79.0-98.0); MONOCYTES # (AUTO) 0.5 K/uL (0.0-1.0); MONOCYTES % (AUTO) 4.5 % (1.7-9.3); NEUTROPHILS # (AUTO) 9.1 K/uL (1.8-7.7); NEUTROPHILS % (AUTO) 80.6 % (40.0-70.0); PLATELET COUNT (AUTO) 487 K/uL (130-430); RED CELL DISTRIBUTION WIDTH 12.3 % (9.0-15.0); WHITE BLOOD COUNT (AUTO) 11.3 K/uL (4.8-10.8)
[2017-10-12 07:20] LABS: CALCIUM 9.1 mg/dL (8.4-11.0); CREATININE 1.18 mg/dL (0.55-1.30); POTASSIUM 4.3 mmol/L (3.5-5.1)
[2017-10-12 07:36] VITALS: BP_SYST 128
--- NOTE | 2017-10-12 08:00 | NUR ---
Patient awake alert oriented x4. Denies any pain or discomfort. Right axilla with dressin noted intact, though soiled. No new bleeding. Will change dressing per surgeon dr Becerra orders. Call light in reach.
[2017-10-12] MEDS: FAMOTIDINE 20 MG TABLET PO SCH (08:51)
--- NOTE | 2017-10-12 09:00 | NUR ---
Patient ambulatng hallway with no complain of pain at this time. Steady gait noted
--- NOTE | 2017-10-12 11:26 | NUR ---
Patient resting no distress.
[2017-10-12 12:00] VITALS: BP_SYST 128
--- NOTE | 2017-10-12 13:30 | NUR ---
Patient resting no distress. Assessed the wound site, noted some new bleeding. Still awaiting MD rounds.
--- NOTE | 2017-10-12 14:39 | NUR ---
Dr Becerra paged for wound care orders.
--- NOTE | 2017-10-12 15:25 | NUR ---
Dietitian Recommendations * Recommend continuing regular diet per LP, RD Please refer to Nutrition Assessment for details.
[2017-10-12] MEDS: VANCOMYCIN HCL 1,500 MG in NS 250 ML IV SCH (15:33)
[2017-10-12] MEDS: MORPHINE 2 MG/ML INJ. SYRINGE IVP PRN (15:49)
--- NOTE | 2017-10-12 16:45 | NUR ---
Incision care provided per dr lynch order. Wound unpacked with NS used to loosed the packing. Moderated bleeding. Cleaned with Betadine and packed with iodofoam dressing. Dry sterile gauze placed on top and pressure applied to stop bleeding. Pain medication administered for wound care. Pt tolerated fair.
[2017-10-12 17:23] VITALS: BP_SYST 130
[2017-10-12] MEDS: HYDROcodone/ACETAMIN 5-325 MG TAB (NORCO/ VICODIN) PO PRN (18:17)
--- NOTE | 2017-10-12 18:59 | NUR ---
Closing note Patient and significant other in room. PRN medication administered. All needs met. Incision with no drainage noted at this time
[2017-10-12] MEDS: ZOLPIDEM TARTRATE 5 MG TABLET PO PRN (22:55)
[2017-10-13 00:38] VITALS: BP_SYST 115
[2017-10-13 04:00] VITALS: BP_SYST 120
[2017-10-13] MEDS: CLINDAMYCIN 600 MG in D5W 50 ML IV SCH ×5 (06:00→19:13)
[2017-10-13 08:00] VITALS: BP_SYST 119
--- NOTE | 2017-10-13 08:00 | NUR ---
PATIENT A/OX4, AMBULATORY. IV ON LEFT FA, #22, SL. DRESSING NOTED RIGHT AXILLA. INSTRUCTED ON POC, CALL LIGHT IN PLACE, BED LOCKED AT THE LOWEST POSITION, WILL CONTINUE TO MONITOR.
[2017-10-13] MEDS: FAMOTIDINE 20 MG TABLET PO SCH (08:03)
[2017-10-13] MEDS: HYDROcodone/ACETAMIN 5-325 MG TAB (NORCO/ VICODIN) PO PRN (08:04)
--- NOTE | 2017-10-13 10:28 | NUR ---
PATIENT IS SEEN AMBULATING ALONG THE HALLWAY.
[2017-10-13 12:00] VITALS: BP_SYST 125
--- NOTE | 2017-10-13 12:45 | NUR ---
PATIENT COMPLETES HIS LUNCH, NO SIGNS OF DISTRESS NOTED.
--- NOTE | 2017-10-13 15:12 | NUR ---
WOUND CARE COMPLETED. PATIENT'S WOUND ON RIGHT AXILLA IS PACKED WITH IODOFORM DRESSING AFTER CLEANSED WITH NS, PATTED DRY, COVERED WITH GAUZE AND TAPE.
[2017-10-13] MEDS: MORPHINE 2 MG/ML INJ. SYRINGE IVP PRN (15:14)
[2017-10-13] MEDS: VANCOMYCIN HCL 1,500 MG in NS 250 ML IV SCH (15:15)
[2017-10-13 16:00] VITALS: BP_SYST 123
--- NOTE | 2017-10-13 16:46 | NUR ---
DISCHARGE PLANNING DC order to arrange home health with IV Abx. Faxed IV medication order to [facility] spoke with Polina in intake dept who will process medication order and schedule delivery with patient. Home health order faxed to [facility] [phone] spoke with Franny in intake dept who will call patient to scheduled nursing visit. Met with patient at bedside who was made aware and agreeable with out of pocket deductible and arrangements made for his discharge. JODY Grove made aware.
--- NOTE | 2017-10-13 17:40 | NUR ---
PATIENT IS AT REST, WAITING FOR DINNER. DISCHARGE INSTRUCTIONS ARE PROVIDED.
[2017-10-13 17:58] VITALS: BP_SYST 123
== END 2017-10-13 20:00 | disposition home health service (06) | DRG 580 ==
LOC: SED 17:34 → SMU 23:04
PROVIDERS: ADMIT Internal Medicine; ATTEND Internal Medicine
PROC: 0J9D0ZZ Drainage of Right Upper Arm Subcutaneous Tissue and Fascia, Open Approach (ICD-10-PCS; principal; 2017-10-11 14:00)
DX: L03.111 Cellulitis of right axilla (principal); L03.313 Cellulitis of chest wall; L02.411 Cutaneous abscess of right axilla; R73.9 Hyperglycemia, unspecified; B95.62 Methicillin resistant Staphylococcus aureus infection as the cause of diseases classified elsewhere; F17.200 Nicotine dependence, unspecified, uncomplicated; Z90.49 Acquired absence of other specified parts of digestive tract
CPT/HCPCS: 36415; 71045; 80048; 80053; 81003; 85025; 85610-TC; 85730-TC; 86886; 86900; 86901; 87040-TC; 87070; 87070-TC; 87075-TC; 87081; 87186-TC; 93005; 94760; 96365; 96375; 99285; J0295; J1170; J2270; J3370; J3490; J7050; J7060

== ENCOUNTER 2018-01-23 11:21 | Inpatient (IN) | payer BC ==
[~2018-01-23] VITALS: Ht 165.1 cm; Wt 65.8 kg
[~2018-01-23 11:21] MED LIST: CLIN-77 PO; IBUP-1969 PO
[2018-01-23 11:26] VITALS: BP_SYST 121
[2018-01-23] MEDS ORDERED: VANCOMYCIN HCL 1,000 MG in NS 250 ML IV ONE (12:15)
[2018-01-23] MEDS ORDERED: NS 1000 ML BAG IV ONE (12:15)
[2018-01-23] MEDS ORDERED: cefTRIAXone 1 GM IVPB PREMIX 50 ML IV ONE (12:15)
[2018-01-23 12:33] LABS: LYMPHOCYTES # (AUTO) 1.4 K/uL (1.0-5.5); LYMPHOCYTES % (AUTO) 14.1 % (20.5-51.5); RED BLOOD CELL COUNT(AUTO) 4.32 MIL/uL (4.2-6.2); RED CELL DISTRIBUTION WIDTH 13.1 % (9.0-15.0); WHITE BLOOD COUNT (AUTO) 9.6 K/uL (4.8-10.8)
[2018-01-23 12:36] LABS: BASOPHILS % (AUTO) 0.2 % (0.0-2.0); EOSINOPHILS % (AUTO) 0.3 % (0.0-4.0); HEMATOCRIT 40.6 % (36-54); HEMOGLOBIN 13.8 g/dL (14.0-18.0); MEAN CORPUSCULAR HEMOGLOBIN 32 pg (27-31); MEAN CORPUSCULAR HGB CONC 34 % (32-36); MEAN CORPUSCULAR VOLUME 94 fL (79.0-98.0); MONOCYTES # (AUTO) 0.4 K/uL (0.0-1.0); MONOCYTES % (AUTO) 4.6 % (1.7-9.3); NEUTROPHILS # (AUTO) 7.8 K/uL (1.8-7.7); NEUTROPHILS % (AUTO) 80.8 % (40.0-70.0); PLATELET COUNT (AUTO) 314 K/uL (130-430)
[2018-01-23 12:44] LABS: CALCIUM 9.2 mg/dL (8.4-11.0); CREATININE 1.41 mg/dL (0.55-1.30); POTASSIUM 3.7 mmol/L (3.5-5.1)
[2018-01-23 12:47] LABS: INR 1.1 (0.80-1.20)
[2018-01-23 12:49] LABS: ALBUMIN 3.7 g/dL (3.4-4.8); TOTAL BILIRUBIN 0.4 mg/dL (0.0-1.0)
[2018-01-23] MEDS ORDERED: fentaNYL CITRATE/PF 100 MCG/2 ML AMP IVP ONE (13:00)
[2018-01-23] MEDS ORDERED: ONDANSETRON HCL 4 MG/2 ML VIAL IVP ONE (13:00)
[2018-01-23] MEDS ORDERED: VANCOMYCIN HCL 1000 MG/VIAL IV ONE (14:12)
[2018-01-23] MEDS ORDERED: ZOLPIDEM TARTRATE 5 MG TABLET PO PRN (15:15)
[2018-01-23] MEDS ORDERED: ACETAMINOPHEN 325 MG TABLET PO PRN (15:15)
[2018-01-23] MEDS: MORPHINE 4 MG/ML INJ. SYRINGE IVP PRN (17:54)
[2018-01-23] MEDS ORDERED: FAMOTIDINE 20 MG TABLET PO ONE (18:00)
[2018-01-23 19:45] VITALS: BP_SYST 149
[2018-01-23] MEDS: LINEZOLID 300 ML IV SCH (21:43)
[2018-01-23] MEDS ORDERED: LORazepam 1 MG TABLET PO ONE (22:45)
[2018-01-24 00:40] VITALS: BP_SYST 135
[2018-01-24 07:06] LABS: BASOPHILS % (AUTO) 0.3 % (0.0-2.0); EOSINOPHILS % (AUTO) 0.5 % (0.0-4.0); HEMATOCRIT 41.3 % (36-54); LYMPHOCYTES # (AUTO) 1.4 K/uL (1.0-5.5); LYMPHOCYTES % (AUTO) 17.6 % (20.5-51.5); MEAN CORPUSCULAR HEMOGLOBIN 32 pg (27-31); MEAN CORPUSCULAR HGB CONC 34 % (32-36); MEAN CORPUSCULAR VOLUME 94 fL (79.0-98.0); MONOCYTES # (AUTO) 0.5 K/uL (0.0-1.0); MONOCYTES % (AUTO) 5.9 % (1.7-9.3); NEUTROPHILS # (AUTO) 6.2 K/uL (1.8-7.7); NEUTROPHILS % (AUTO) 75.7 % (40.0-70.0); PLATELET COUNT (AUTO) 305 K/uL (130-430); RED BLOOD CELL COUNT(AUTO) 4.39 MIL/uL (4.2-6.2); RED CELL DISTRIBUTION WIDTH 12.9 % (9.0-15.0); WHITE BLOOD COUNT (AUTO) 8.1 K/uL (4.8-10.8)
[2018-01-24 07:17] LABS: CALCIUM 8.9 mg/dL (8.4-11.0); CREATININE 1.33 mg/dL (0.55-1.30); POTASSIUM 4.4 mmol/L (3.5-5.1)
[2018-01-24 08:00] VITALS: BP_SYST 121
[2018-01-24] MEDS: LINEZOLID 300 ML IV SCH ×2 (08:36→21:47)
[2018-01-24] MEDS: MORPHINE 4 MG/ML INJ. SYRINGE IVP PRN ×3 (08:37→16:46)
[2018-01-24] MEDS: FAMOTIDINE 20 MG TABLET PO SCH (08:37)
[2018-01-24 12:00] VITALS: BP_SYST 115
[2018-01-24] MEDS: NACL 0.9% 1,000 ML IV SCH ×2 (14:06→21:47)
[2018-01-24 14:55] LABS: BILIRUBIN,URINE NEGATIVE (NEGATIVE); BLOOD, URINE NEGATIVE (NEGATIVE); CLARITY/URINE CLEAR (CLEAR); COLOR,URINE YELLOW (YELLOW); GLUCOSE,URINE NEGATIVE (NEGATIVE); KETONES,URINE NEGATIVE (NEGATIVE); LEUKOCYTE ESTERASE ,URINE NEGATIVE (NEGATIVE); NITRITE, URINE NEGATIVE (NEGATIVE); PROTEIN URINE NEGATIVE (NEGATIVE); UROBILINOGEN,URINE 0.2 (0.2-1.0)
[2018-01-24] MEDS: SILVER 44.4 ML GEL.ER.ML. TP SCH (15:00)
[2018-01-24 16:05] VITALS: BP_SYST 112
[2018-01-24] MEDS: ONDANSETRON HCL 4 MG/2 ML VIAL IVP PRN (18:08)
[2018-01-24] MEDS: DOCUSATE SODIUM 250 MG CAPSULE PO SCH (21:00)
[2018-01-24] MEDS: SENNOSIDES 8.6 MG TABLET PO SCH (21:00)
[2018-01-24 21:30] VITALS: BP_SYST 130
[2018-01-24] MEDS ORDERED: ZOLPIDEM TARTRATE 5 MG TABLET PO ONE (22:30)
[2018-01-25 00:52] VITALS: BP_SYST 130
[2018-01-25 07:40] LABS: ALBUMIN 3.5 g/dL (3.4-4.8); CALCIUM 9.4 mg/dL (8.4-11.0); CREATININE 1.36 mg/dL (0.55-1.30); POTASSIUM 4.2 mmol/L (3.5-5.1); TOTAL BILIRUBIN 0.6 mg/dL (0.0-1.0)
[2018-01-25] MEDS ORDERED: MIDAZOLAM HCL 5 MG/5 ML VIAL IVP PRN (08:00)
[2018-01-25] MEDS ORDERED: ONDANSETRON HCL 4 MG/2 ML VIAL IVP ONE ×2 (08:00→08:08)
[2018-01-25] MEDS ORDERED: MEPERIDINE HCL/PF 25 MG/ML DISP.SYRIN IVP PRN (08:00)
[2018-01-25] MEDS ORDERED: fentaNYL CITRATE/PF 100 MCG/2 ML AMP IVP PRN (08:00)
[2018-01-25] MEDS ORDERED: MORPHINE 4 MG/ML INJ. SYRINGE IVP PRN (08:00)
[2018-01-25] MEDS ORDERED: NALOXONE HCL 0.4 MG/ML AMP (NARCAN) IVP ONE (08:00)
[2018-01-25] MEDS ORDERED: KETOROLAC TROMETHAMINE 30 MG VIAL IVP ONE ×2 (08:00→08:08)
[2018-01-25] MEDS ORDERED: GLYCOPYRROLATE 0.2 MG/ML VIAL IJ ONE (08:08)
[2018-01-25] MEDS ORDERED: PROPOFOL 200MG/ 20ML VIAL (DIPRIVAN) IV ONE (08:08)
[2018-01-25] MEDS ORDERED: MIDAZOLAM HCL 5 MG/ML VIAL (VERSED) IV ONE (08:08)
[2018-01-25] MEDS ORDERED: NEOSTIGMINE METHYLSULFATE 1 MG/ML, 10 ML VIAL IVP ONE (08:08)
[2018-01-25] MEDS ORDERED: DEXAMETHASONE SOD PHOSPHATE 4 MG/ML VIAL IVP ONE (08:08)
[2018-01-25] MEDS ORDERED: LR 1,000 ML IV.SOLN IV ONE (08:08)
[2018-01-25] MEDS ORDERED: ROCURONIUM BROMIDE 10 MG/ML (ZEMURON) IV ONE (08:08)
[2018-01-25] MEDS ORDERED: fentaNYL CITRATE/PF 100 MCG/2 ML AMP IVP ONE (08:08)
[2018-01-25] MEDS ORDERED: SEVOFLURANE 15 MIN GAS INH ONE (08:08)
[2018-01-25] MEDS ORDERED: LIDOCAINE 1% 10 MG/ML, 20 ML MDV INJ ONE (08:08)
[2018-01-25] MEDS: SILVER 44.4 ML GEL.ER.ML. TP SCH (09:00)
[2018-01-25] MEDS: MORPHINE 4 MG/ML INJ. SYRINGE IVP PRN (09:04)
[2018-01-25] MEDS: LINEZOLID 300 ML IV SCH ×2 (09:06→20:21)
[2018-01-25] MEDS: NACL 0.9% 1,000 ML IV SCH ×2 (09:07→20:20)
[2018-01-25] MEDS: DOCUSATE SODIUM 250 MG CAPSULE PO SCH ×2 (10:18→20:19)
[2018-01-25] MEDS: FAMOTIDINE 20 MG TABLET PO SCH (10:19)
[2018-01-25] MEDS ORDERED: SUCRALFATE 1 GM TABLET PO ONE (11:15)
[2018-01-25 12:14] VITALS: BP_SYST 127
[2018-01-25 16:11] VITALS: BP_SYST 125
[2018-01-25] MEDS: SUCRALFATE 1 GM TABLET PO SCH (18:06)
[2018-01-25 20:00] VITALS: BP_SYST 145
[2018-01-25] MEDS: ALPRAZolam 0.25 MG TABLET PO PRN (20:19)
[2018-01-25] MEDS: SENNOSIDES 8.6 MG TABLET PO SCH (20:20)
[2018-01-26 00:40] VITALS: BP_SYST 124
[2018-01-26] MEDS: SUCRALFATE 1 GM TABLET PO SCH ×2 (06:24→16:15)
[2018-01-26 07:33] LABS: BASOPHILS % (AUTO) 0.3 % (0.0-2.0); EOSINOPHILS % (AUTO) 0.4 % (0.0-4.0); HEMATOCRIT 39.6 % (36-54); HEMOGLOBIN 13.3 g/dL (14.0-18.0); LYMPHOCYTES # (AUTO) 2.6 K/uL (1.0-5.5); LYMPHOCYTES % (AUTO) 33.2 % (20.5-51.5); MEAN CORPUSCULAR HEMOGLOBIN 32 pg (27-31); MEAN CORPUSCULAR HGB CONC 34 % (32-36); MEAN CORPUSCULAR VOLUME 94 fL (79.0-98.0); MONOCYTES # (AUTO) 0.4 K/uL (0.0-1.0); MONOCYTES % (AUTO) 5.6 % (1.7-9.3); NEUTROPHILS # (AUTO) 4.9 K/uL (1.8-7.7); NEUTROPHILS % (AUTO) 60.5 % (40.0-70.0); PLATELET COUNT (AUTO) 342 K/uL (130-430); RED BLOOD CELL COUNT(AUTO) 4.22 MIL/uL (4.2-6.2); RED CELL DISTRIBUTION WIDTH 13.2 % (9.0-15.0); WHITE BLOOD COUNT (AUTO) 7.9 K/uL (4.8-10.8)
[2018-01-26 07:42] LABS: CREATININE 1.53 mg/dL (0.55-1.30)
[2018-01-26 08:00] VITALS: BP_SYST 121
[2018-01-26] MEDS: SILVER 44.4 ML GEL.ER.ML. TP SCH (09:00)
[2018-01-26] MEDS: LINEZOLID 300 ML IV SCH ×2 (09:43→20:33)
[2018-01-26] MEDS: DOCUSATE SODIUM 250 MG CAPSULE PO SCH ×2 (09:43→20:43)
[2018-01-26] MEDS: FAMOTIDINE 20 MG TABLET PO SCH (09:43)
[2018-01-26] MEDS: ONDANSETRON HCL 4 MG/2 ML VIAL IVP PRN ×2 (09:44→16:18)
[2018-01-26] MEDS: HYDROcodone/ACETAMIN 5-325 MG TAB (NORCO/ VICODIN) PO PRN (09:56)
[2018-01-26 12:29] VITALS: BP_SYST 148
[2018-01-26] MEDS: NACL 0.9% 1,000 ML IV SCH ×2 (14:08→16:14)
[2018-01-26 16:24] VITALS: BP_SYST 140
[2018-01-26] MEDS: ALPRAZolam 0.25 MG TABLET PO PRN (17:48)
[2018-01-26 20:00] VITALS: BP_SYST 129
[2018-01-26] MEDS: SENNOSIDES 8.6 MG TABLET PO SCH (20:43)
[2018-01-26 23:59] VITALS: BP_SYST 118
[2018-01-27 06:19] LABS: ALBUMIN 3.3 g/dL (3.4-4.8); CALCIUM 8.8 mg/dL (8.4-11.0); CREATININE 1.4 mg/dL (0.55-1.30); PHOSPHORUS 3.6 mg/dL (2.7-4.5); POTASSIUM 3.7 mmol/L (3.5-5.1); TOTAL BILIRUBIN 0.4 mg/dL (0.0-1.0)
[2018-01-27 08:00] VITALS: BP_SYST 147
[2018-01-27] MEDS: FAMOTIDINE 20 MG TABLET PO SCH (08:34)
[2018-01-27] MEDS: DOCUSATE SODIUM 250 MG CAPSULE PO SCH ×2 (08:34→21:35)
[2018-01-27] MEDS: LINEZOLID 300 ML IV SCH ×2 (08:35→21:36)
[2018-01-27] MEDS: SILVER 44.4 ML GEL.ER.ML. TP SCH (09:00)
[2018-01-27] MEDS: HYDROcodone/ACETAMIN 5-325 MG TAB (NORCO/ VICODIN) PO PRN (09:18)
[2018-01-27 12:26] VITALS: BP_SYST 131
[2018-01-27] MEDS: ALPRAZolam 0.25 MG TABLET PO PRN (13:08)
[2018-01-27] MEDS: NACL 0.9% 1,000 ML IV SCH ×2 (15:00→21:37)
[2018-01-27 16:03] VITALS: BP_SYST 124
[2018-01-27 20:00] VITALS: BP_SYST 138
[2018-01-27] MEDS: SENNOSIDES 8.6 MG TABLET PO SCH (21:35)
[2018-01-27] MEDS: ZOLPIDEM TARTRATE 5 MG TABLET PO PRN (22:26)
[2018-01-27 23:58] VITALS: BP_SYST 132
[2018-01-28 06:55] LABS: BASOPHILS % (AUTO) 0.4 % (0.0-2.0); EOSINOPHILS # (AUTO) 0.1 K/uL (0.0-0.4); EOSINOPHILS % (AUTO) 1.8 % (0.0-4.0); HEMATOCRIT 43.5 % (36-54); HEMOGLOBIN 14.1 g/dL (14.0-18.0); LYMPHOCYTES # (AUTO) 2.2 K/uL (1.0-5.5); LYMPHOCYTES % (AUTO) 34.9 % (20.5-51.5); MEAN CORPUSCULAR HEMOGLOBIN 31 pg (27-31); MEAN CORPUSCULAR HGB CONC 33 % (32-36); MEAN CORPUSCULAR VOLUME 95 fL (79.0-98.0); MONOCYTES # (AUTO) 0.5 K/uL (0.0-1.0); NEUTROPHILS # (AUTO) 3.5 K/uL (1.8-7.7); NEUTROPHILS % (AUTO) 54.9 % (40.0-70.0); PLATELET COUNT (AUTO) 379 K/uL (130-430); RED BLOOD CELL COUNT(AUTO) 4.58 MIL/uL (4.2-6.2); RED CELL DISTRIBUTION WIDTH 12.6 % (9.0-15.0); WHITE BLOOD COUNT (AUTO) 6.3 K/uL (4.8-10.8)
[2018-01-28 07:17] LABS: ALBUMIN 3.5 g/dL (3.4-4.8); CALCIUM 9.2 mg/dL (8.4-11.0); CREATININE 1.36 mg/dL (0.55-1.30); POTASSIUM 3.6 mmol/L (3.5-5.1); TOTAL BILIRUBIN 0.3 mg/dL (0.0-1.0)
[2018-01-28 08:55] VITALS: BP_SYST 126
[2018-01-28] MEDS: FAMOTIDINE 20 MG TABLET PO SCH (08:56)
[2018-01-28] MEDS: DOCUSATE SODIUM 250 MG CAPSULE PO SCH ×2 (08:56→20:56)
[2018-01-28] MEDS: SILVER 44.4 ML GEL.ER.ML. TP SCH (08:57)
[2018-01-28] MEDS: LINEZOLID 300 ML IV SCH ×2 (08:57→20:57)
[2018-01-28 12:01] VITALS: BP_SYST 140
[2018-01-28] MEDS: ALPRAZolam 0.25 MG TABLET PO PRN (12:51)
[2018-01-28 16:00] VITALS: BP_SYST 112
[2018-01-28] MEDS: NACL 0.9% 1,000 ML IV SCH (18:42)
[2018-01-28 20:00] VITALS: BP_SYST 139
[2018-01-28] MEDS: ZOLPIDEM TARTRATE 5 MG TABLET PO PRN (20:56)
[2018-01-28] MEDS: SENNOSIDES 8.6 MG TABLET PO SCH (20:56)
[2018-01-28 23:58] VITALS: BP_SYST 120
[2018-01-29 07:55] VITALS: BP_SYST 135
[2018-01-29] MEDS: DOCUSATE SODIUM 250 MG CAPSULE PO SCH (09:00)
[2018-01-29] MEDS: FAMOTIDINE 20 MG TABLET PO SCH (09:34)
[2018-01-29] MEDS: LINEZOLID 300 ML IV SCH (09:35)
[2018-01-29] MEDS: NACL 0.9% 1,000 ML IV SCH (09:38)
[2018-01-29] MEDS: SILVER 44.4 ML GEL.ER.ML. TP SCH (09:59)
[2018-01-29 11:33] VITALS: BP_SYST 132
[2018-01-29 13:52] VITALS: BP_SYST 132
[2018-01-29] MEDS ORDERED: CHLO237L3 TP (15:39)
== END 2018-01-29 14:10 | disposition home or self-care (01) | DRG 603 ==
LOC: SED 11:21 → SMU 14:01
PROVIDERS: ADMIT Internal Medicine; ATTEND Internal Medicine
PROC: 0V950ZZ Drainage of Scrotum, Open Approach (ICD-10-PCS; principal; 2018-01-25 07:30)
DX: L03.314 Cellulitis of groin (principal); N17.9 Acute kidney failure, unspecified; N18.3 Chronic kidney disease, stage 3 (moderate); L02.416 Cutaneous abscess of left lower limb; L02.214 Cutaneous abscess of groin; N49.2 Inflammatory disorders of scrotum; B95.62 Methicillin resistant Staphylococcus aureus infection as the cause of diseases classified elsewhere; R73.03 Prediabetes; F17.200 Nicotine dependence, unspecified, uncomplicated; Z91.011 Allergy to milk products; Z86.14 Personal history of Methicillin resistant Staphylococcus aureus infection
CPT/HCPCS: 36415; 71045; 76770; 76857; 80048; 80053; 81003; 83605; 84100-TC; 84484; 84550-TC; 85025; 85610-TC; 85730-TC; 86886; 86900; 86901; 87040-TC; 87070; 87070-TC; 87075-TC; 87081; 87086; 87186-TC; 93005; 96365; 96366; 96367; 99285; A6261; J0696; J1100; J1885; J2001; J2020; J2250; J2270; J2405; J2704; J2710; J3010; J3370; J3490; J7030; J7050; J7120

== ENCOUNTER 2020-03-28 11:04 | Emergency (ER) | payer BC ==
[~2020-03-28] VITALS: Ht 165.1 cm; Wt 64.4 kg
[~2020-03-28 11:04] MED LIST changes: +CHLO237L3 TP; -CLIN-77 PO; -IBUP-1969 PO
[2020-03-28 11:10] VITALS: BP_SYST 142
--- NOTE | 2020-03-28 11:13 | NUR ---
Patient to ER bed 06 to gown for evaluation. Side rails up.
[2020-03-28] MEDS ORDERED: NACL 0.9% 1,000 ML IV ONE (11:14)
[2020-03-28] MEDS ORDERED: ONDANSETRON HCL 4 MG/2 ML VIAL IVP ONE (11:15)
[2020-03-28] MEDS ORDERED: MORPHINE 4 MG/ML INJ. SYRINGE IVP ONE (11:15)
--- NOTE | 2020-03-28 11:30 | NUR ---
pt came to ER for LUQ abd pain, nausea, diarrhea. Pt reports pain 6/10 intermittent. Vss, resting in gurney, on monitor at this time.
[2020-03-28 11:33] LABS: BASOPHILS % (AUTO) 0.3 % (0.0-2.0); EOSINOPHILS % (AUTO) 0.1 % (0.0-4.0); HEMATOCRIT 44.1 % (36-54); HEMOGLOBIN 15.3 g/dL (14.0-18.0); LYMPHOCYTES % (AUTO) 16.1 % (20.5-51.5); MEAN CORPUSCULAR HEMOGLOBIN 33 pg (27-31); MEAN CORPUSCULAR HGB CONC 35 % (32-36); MEAN CORPUSCULAR VOLUME 96 fL (79.0-98.0); MONOCYTES # (AUTO) 0.4 K/uL (0.0-1.0); NEUTROPHILS # (AUTO) 4.8 K/uL (1.8-7.7); NEUTROPHILS % (AUTO) 76.5 % (40.0-70.0); PLATELET COUNT (AUTO) 203 K/uL (130-430); RED BLOOD CELL COUNT(AUTO) 4.58 MIL/uL (4.2-6.2); RED CELL DISTRIBUTION WIDTH 13.2 % (9.0-15.0); WHITE BLOOD COUNT (AUTO) 6.3 K/uL (4.8-10.8)
--- NOTE | 2020-03-28 11:40 | NUR ---
ER at bedside examining patient.
[2020-03-28 11:48] LABS: CALCIUM 8.4 mg/dL (8.4-11.0); CREATININE 1.24 mg/dL (0.55-1.30)
[2020-03-28 11:51] LABS: PROTHROMBIN TIME 9.9 SECS (9.5-12.5)
[2020-03-28 11:54] LABS: ALBUMIN 3.8 g/dL (3.4-4.8); TOTAL BILIRUBIN 0.7 mg/dL (0.0-1.0)
--- NOTE | 2020-03-28 12:19 | NUR ---
Pt resting in gurney at this time, reports no abd pain or nausea.
[2020-03-28 12:33] LABS: BILIRUBIN,URINE 1+ (NEGATIVE); BLOOD, URINE 2+ (NEGATIVE); CLARITY/URINE CLEAR (CLEAR); COLOR,URINE YELLOW (YELLOW); GLUCOSE,URINE NEGATIVE (NEGATIVE); KETONES,URINE NEGATIVE (NEGATIVE); LEUKOCYTE ESTERASE ,URINE NEGATIVE (NEGATIVE); NITRITE, URINE NEGATIVE (NEGATIVE); PH,URINE 5.5 (5.0-8.0); PROTEIN URINE 1+ (NEGATIVE); UROBILINOGEN,URINE 0.2 (0.2-1.0)
[2020-03-28 12:42] LABS: BACTERIA,URINE FEW /HPF (None Seen); WBC,URINE 0-3 /HPF (0-3)
[2020-03-28 12:43] LABS: FINE GRANULAR CASTS,URINE 0-10 /LPF (None Seen); MUCUS,URINE 1+ /LPF (None Seen)
--- NOTE | 2020-03-28 13:45 | NUR ---
Patient given written and verbal discharge instructions and verbalizes understanding. ER MD discussed with patient the results and treatment provided. Patient in stable condition. ID arm band removed, kept per patient request. IV catheter removed intact and dressing applied, no active bleeding. Rx of Cipro, Flagyl, Tylenol with codiene, Lomotil given. Patient educated on pain management and to follow up with PMD. Pain Scale 0/10. Opportunity for questions provided and answered. Medication side effect fact sheet provided.
[2020-03-28 13:58] VITALS: BP_SYST 129
== END 2020-03-28 13:45 | disposition home or self-care (01) ==
LOC: SED 11:04
DX: K52.9 Noninfective gastroenteritis and colitis, unspecified (principal); K57.90 Diverticulosis of intestine, part unspecified, without perforation or abscess without bleeding; Z88.8 Allergy status to other drugs, medicaments and biological substances; Z79.899 Other long term (current) drug therapy
CPT/HCPCS: 36415; 71045; 74176; 80053; 81000; 82150; 82550; 83605; 83690; 83880; 84484; 85025; 85610; 85730; 87040; 93005; 96361; 96374; 96375; 99285; J2270; J2405; J7030

== ENCOUNTER 2020-03-31 01:25 | Emergency (ER) | payer BC ==
[~2020-03-31] VITALS: Ht 165.1 cm; Wt 64.4 kg
[2020-03-31 01:35] VITALS: BP_SYST 137
--- NOTE | 2020-03-31 03:08 | NUR ---
TO BED 6 A/O AND ABLE TO COMMUNICATE HIS NEEDS. C/O SINUS HEADACHE. LIGHTS OFF IN ROOM FOR PT CONFORT.
--- NOTE | 2020-03-31 03:50 | NUR ---
ER Dr. MONTILLA at bedside examining patient.
[2020-03-31] MEDS ORDERED: KETOROLAC TROMETHAMINE 60 MG/2 ML VIAL IM ONE (04:15)
[2020-03-31 05:14] VITALS: BP_SYST 137
--- NOTE | 2020-03-31 05:15 | NUR ---
PT STABLE, VSS. NO LIGHT SENSITIVITY. ALERT AND ORIENTED.
--- NOTE | 2020-03-31 05:16 | NUR ---
Patient given written and verbal discharge instructions and verbalizes understanding. ER MD discussed with patient the results and treatment provided. Patient in stable condition. ID arm band removed. Rx of NORCO given. Patient educated on pain management and to follow up with PMD. Pain Scale 1/10. Opportunity for questions provided and answered. Medication side effect fact sheet provided.
== END 2020-03-31 05:14 | disposition home or self-care (01) ==
LOC: SED 01:25
DX: R51 Headache (principal)
CPT/HCPCS: 96372; 99283; J1885